=== PATIENT | male | born 1955 | race Caucasian/White ===

== ENCOUNTER → 2018-08-12 | Outpatient (CLI) | payer MEDICARE ==
[2018-08-12 15:13] LABS: Basophils % (A) 0 %; Eosinophils # (A) 0.1 k/uL (0-0.7); Eosinophils % (A) 1 %; HCT 40.9 % (39.0-53.0); HGB 13.4 gm/dL (13.0-17.5); Lymphocytes # (A) 2.1 k/uL (1.0-4.8); Lymphocytes % (A) 28 %; MCH 31.4 pg (25.0-35.0); MCHC 32.9 g/dL (31.0-37.0); MCV 95.5 fL (80.0-100.0); Mean Platelet Volume 6.6; Monocytes # (A) 0.4 k/uL (0-1.0); Monocytes % (A) 5 %; Neutrophils % (A) 64 %; Platelet Count 246 k/uL (150-450); RBC 4.28 m/uL (4.30-5.90); RDW 12.6 % (11.5-15.5); WBC 7.7 k/uL (3.8-10.6)
[2018-08-12 15:31] LABS: Potassium 4.4 mmol/L (3.5-5.1)
== END | disposition home or self-care (01) ==
LOC: LABPAT 14:16
PROVIDERS: ATTEND Surgery
DX: Z01.812 Encounter for preprocedural laboratory examination (principal); I65.21 Occlusion and stenosis of right carotid artery
CPT/HCPCS: 36415; 80051; 82565; 84520; 85025

== ENCOUNTER 2018-09-02 05:39 | Inpatient (IN) | payer MEDICARE ==
[2018-08-25 12:33] VITALS: BMI 24.0
[~2018-09-02 05:39] MED LIST: ceFAZolin IN SWFI 2 GM/20 ML SYRINGE IVP ONE
[2018-09-02] MEDS ORDERED: SCOPOLAMINE 1.5MG/72HR PATCH TRANSDERM ONE (06:01)
[2018-09-02] MEDS ORDERED: ONDANSETRON 4 MG/2 ML VIAL IVP ONE (06:01)
[2018-09-02] MEDS ORDERED: DEXAMETHASONE SOD PHOSPHATE 10 MG/ML 1 ML VIAL IV ONE (06:01)
[2018-09-02] MEDS ORDERED: LIDOCAINE 1% 20 ML VIAL (10MG/ML) FOR IV START INTRADERMA PRN (06:01)
[2018-09-02] MEDS: LACTATED RINGERS 1,000 ML IV SCH ×4 (06:34→22:19)
[2018-09-02] MEDS ORDERED: MIDAZOLAM 2 MG/2 ML VIAL IV ONE (06:50)
[2018-09-02] MEDS ORDERED: NITROGLYCERIN-D5W PMX 50 MG in DEXTROSE/WATER 1 250ML.BAG IV SCH (07:15)
[2018-09-02] MEDS ORDERED: PHENYLEPHRINE 40 MG in SODIUM CHLORIDE 0.9% 250 ML IV SCH (07:15)
[2018-09-02] MEDS ORDERED: GLYCOPYRROLATE 0.2 MG/ML 2 ML VIAL ONE (07:27)
[2018-09-02] MEDS ORDERED: LIDOCAINE 1% INJ 10MG/ML (20 ML MDV) ONE (07:27)
[2018-09-02] MEDS ORDERED: ROCURONIUM BROMIDE 10 MG/ML 10 ML VIAL IV ONE (07:27)
[2018-09-02] MEDS ORDERED: PROTAMINE SULFATE 10 MG/ML 5 ML VIAL IV ONE (07:27)
[2018-09-02] MEDS ORDERED: fentaNYL (PF) 50 MCG/ML 2 ML AMP ONE (07:27)
[2018-09-02] MEDS ORDERED: PROPOFOL 10 MG/ML 20 ML VIAL IV ONE (07:27)
[2018-09-02] MEDS ORDERED: NITROGLYCERIN-D5W PMX 50 MG/250 ML BOTTLE IV ONE (07:27)
[2018-09-02] MEDS ORDERED: NEOSTIGMINE 1 MG/ML 10 ML VIAL ONE (07:27)
[2018-09-02] MEDS ORDERED: HEPARIN SODIUM,PORCINE 10,000 UNIT/ML 1 ML VIAL ONE (07:27)
[2018-09-02] MEDS ORDERED: LIDOCAINE 1% INJ 10MG/ML (20 ML MDV) IV ONE (08:06)
[2018-09-02] MEDS ORDERED: SODIUM CHLORIDE 0.9% 500 ML 500 ML with HEPARIN SODIUM,PORCINE 5,000 UNIT IV ONE ×2 (08:07)
[2018-09-02] MEDS ORDERED: ceFAZolin 1,000 MG in SODIUM CHLORIDE 0.9% 1,000 ML IRRIGATION ONE (08:09)
[2018-09-02] MEDS ORDERED: THROMBIN (BOVINE) 5,000 UNIT VIAL TOPICAL ONE (08:11)
[2018-09-02] MEDS ORDERED: GELATIN SPONGE,ABSORB (LARGE) 1 EACH SPONGE TOPICAL ONE (08:11)
[2018-09-02] MEDS ORDERED: ASPIRIN 325 MG TAB PO SCH (10:30)
[2018-09-02] MEDS ORDERED: HYDROmorphone 1 MG/ML 1 ML SYRINGE IVP ONE (10:33)
[2018-09-02] MEDS ORDERED: MAG HYDROX/AL HYDROX/SIMETH 30 ML CUP PO PRN (10:37)
[2018-09-02] MEDS ORDERED: TRIMETHOBENZAMIDE 100 MG/ML 2 ML VIAL IM PRN (10:37)
[2018-09-02] MEDS ORDERED: ACETAMINOPHEN TAB 325 MG TAB PO PRN (10:37)
[2018-09-02] MEDS: HYDROmorphone 0.5 MG/0.5 ML SYRINGE IVP PRN ×2 (10:47→11:17)
--- NOTE | 2018-09-02 10:51 | P.OP ---
Date of Procedure: 09/02/18 Preoperative Diagnosis: High-grade/hemodynamically severe right internal carotid artery stenosis Postoperative Diagnosis: Same. Procedure(s) Performed: Right carotid endarterectomy with patch angioplasty. Anesthesia: GETA Surgeon: Alfie Salter Estimated Blood Loss (ml): 50 IV fluids (ml): 400 Urine output (ml): 400 Pathology: other (Right carotid plaque) Condition: stable Disposition: PACU Indications for Procedure: Greater than 80% right ICA stenosis Operative Findings: Greater than 80% right ICA stenosis Description of Procedure: Patient is a 63-year-old male who had presented with a previously diagnosed hemodynamically severe right internal carotid artery stenosis, estimated to be greater than 80%. This was initially identified on carotid duplex imaging and c onfirmed with CT angiography. Because of the patient's relatively good health and felt the patient would benefit from a carotid endarterectomy. The procedure, risk and benefits were discussed with the patient. Patient wished to proceed. Patient was brought to the [facility] and placed in the supine position Mr. general endotracheal anesthesia delivered by the department anesthesiology. The patient received 2 g of Ancef intravenously in the perioperative phase for prophylactic antibiotic therapy. The right lateral neck, supraclavicular and anterior chest wall were sterilely prepped and draped in usual manner. Skin incision was made overlying the anterior border sternocleidomastoid muscle and carried down through the subcutaneous tissues and through the platysma. Hemostasis was achieved using electrocautery. The incision was deepened and the facial vein was identified. This was mobilized and doubly ligated with silk suture and divided between the ligatures. Incision was then carried down to the carotid sheath. Proximal portion of the common carotid artery was identified and dissected free of investing tissues and encircled with Vesseloops. The dissection was carried down to the level of bulb. The vagus nerve was identified and left undisturbed. The superior thyroid and external carotid arteries were identified and encircled Vesseloops. The dissection was then carried cephalad along the internal carotid to a point distal to the plaquing. The distal portion of the internal carotid artery was encircled Vesseloops. Hypoglossal nerve was identified and left undisturbed. The patient was systemically heparinized with 6000 units of heparin. ACT was drawn and and anticoagulation was adequate with an ACT of approximately 270. The Vesseloops surrounding the external carotid and superior thyroid artery drawn closed as was the Vesseloops surrounding the internal and finding the common carotid arteries. Incision was then made in the common extensor with Pott Zhang scissors through the level of bulb past the plaquing and into a normal-appearing segment of distal internal carotid artery. Stump pressure was obtained. This was approximate 40 mmHg mean and was felt the patient would benefit by shunting. As such a shunt was placed first in the internal carotid artery and allowed to backbleed and then placed in the common carotid artery, thus restoring flow into the internal system. Endarterectomy was then begun in the internal carotid and extended through the bulb where a retraction endarterectomy was performed on the external system. Dissection was then carried along the internal carotid and the distal portion of the plaque feathered off well. The plaque was sent to the department of pathology. The remaining luminal surface was inspected for any loose or free- floating material and this was removed where identified. The distal plane of the plaque was tacked with 6-0 Prolene suture. Bovine pericardial patch was selected and patch angioplasty closure of the endarterectomy incision was performed with 6-0 Prolene suture placed in running fashion. Just prior to completion of the anastomotic line backbleeding through the internal carotid was allowed to occur as well as through the external and common segments. Once again no thrombus was retrieved. The lumen was flushed with heparinized saline solution and anastomotic line Lausier completed. Backbleeding was allowed to occur through the internal segment. The internal carotid artery was then occluded at its origin. Vessel loops surrounding the superior thyroid, external carotid and finally the common carotid artery were released thus flushing any potential debris into the external system. Flow was then restored into the internal segment. One point of bleeding along the anastomotic line was identified and this was controlled with 6-0 Prolene suture. The wound was irrigated. Topical thrombin and Gelfoam were placed about the anastomotic line to help assure hemostasis. The patient received 25 mg of protamine to reverse the heparin effect. Reinspection of the anastomotic line in the entirety of the wound demonstrated hemostasis to be adequate. With the above findings noted deep tissues were closed with 3-0 Vicryl dermis was closed with 4-0 Monocryl placed in running intradermal fashion. Steri- Strips and appropriate dressings were applied. Patient tolerated the procedure well awoke without apparent neurologic deficit and was transferred to the recovery area in satisfactory and stable condition.
[2018-09-02] MEDS: HYDROcodone/APAP 5-325MG 1 EACH TAB PO PRN (12:34)
[2018-09-02] MEDS: BENZOCAINE/MENTHOL LOZENG 1 EACH LOZENGE MUCOUS MEM PRN ×3 (12:35→23:44)
[2018-09-02] MEDS ORDERED: NALOXONE 0.4 MG/ML 1 ML VIAL IV PRN (12:55)
[2018-09-02 13:06] LABS: Glucose,Whole Blood 121 mg/dL (75-99)
[2018-09-02] MEDS: ASPIRIN 81 MG PO SCH (13:29)
--- NOTE | 2018-09-02 15:23 | P.CNPUL ---
History of Present Illness Consult date: 09/02/18 Reason for consult: other (postoperative ICU management) Chief complaint: status post carotid endarterectomy History of present illness: this is a 63-year-old white male with no significant past medical history. Patient was recently evaluated by his primary care physician Dr. De León,, and he was found to have right carotid bruit. This was found on a routine physical examination. Patient had no symptoms. Further workup revealed over 80% stenosis of the right carotid artery. Patient was referred to Dr. Baxter, and he underwent today elective right carotid endarterectomy. Postoperatively, patient was transferred to the intensive care unit, and I was asked to see him on consultation. Patient has been at least a [id number] smoker, he smoked until a few weeks ago. No documented history of COPD or COPD symptoms. No documented history of coronary artery disease or symptoms of angina. Patient is normally on aspirin and Flomax, he is also on vitamin D. He had minor surgeries including neuroma surgery on the left foot, left shoulder surgery, and right facial basal cell carcinoma which was removed. Otherwise the patient has no significant past medical history whatsoever. He is also known to have history of benign prostatic hypertrophy. Review of Systems constitutional: No fever no chills no weight loss no aches and pains. HEENT: Denies any earache, denies any headache, no blurred vision, no dizziness. Denies any sore throat. Pulmonary: Denies any cough wheezing or shortness of breath denies any chest pain. Cardiac: Denies any chest pain, no palpitations, no diaphoresis no dyspnea on exertion. GI: Denies any nausea vomiting abdominal pain melena or hematemesis. Genitourinary: Has history of enlarged prostate, and symptoms of prostatism, improved with Flomax. Hematologic: No clotting bleeding or bruising Psychiatric: No symptoms of active depression Neurologic: No symptoms of headache blurred vision or dizziness. Denies any previous history of TIA. Skin: History of neuroma left foot, and history of basal cell carcinoma right cheek. Musculoskeletal: No symptoms of limitation in range of motion, had previous history of bone spur on left shoulder, surgery was performed. Past Medical History Past Medical History: Cancer, Prostate Disorder Additional Past Medical History / Comment(s): HX SKIN CANCER, BPH. History of Any Multi-Drug Resistant Organisms: None Reported Past Surgical History: Orthopedic Surgery Additional Past Surgical History / Comment(s): NEUROMA LEFT FOOT, BONE SPURS SHOULDER Past Anesthesia/Blood Transfusion Reactions: No Reported Reaction Additional Past Anesthesia/Blood Transfusion Reaction / Comment(s): MOTHER=PONV Past Psychological History: No Psychological Hx Reported Smoking Status: Former smoker Past Alcohol Use History: Daily Additional Past Alcohol Use History / Comment(s): QUIT SMOKING 7 WEEKS AGO., SMOKED 1 1/2 PPD., SMOKED 40 YEARS. STATES USUALLY 1 DRINK DAILY. Past Drug Use History: None Reported - Past Family History Mother Family Medical History: No Reported History Medications and Allergies Home Medications Medication Instructions Recorded Confirmed Type Aspirin 325 mg PO DAILY 08/25/18 09/02/18 History Cholecalciferol (Vitamin D3) 2,000 unit PO DAILY 08/25/18 09/02/18 History [Vitamin D3] Tamsulosin HCl [Flomax] 0.4 mg PO DAILY 08/25/18 09/02/18 History Allergies Allergy/AdvReac Type Severity Reaction Status Date / Time simvastatin [From Zocor] AdvReac Unknown red rosas Verified 09/02/18 12:14 on face, dry skin Physical Exam Vitals: Vital Signs Temp Pulse Pulse Pulse Resp BP BP 09/02/18 15:10 60 0 L 123/73 09/02/18 15:00 64 11 L 100/68 09/02/18 14:50 62 0 L 100/68 09/02/18 14:40 63 0 L 99/63 09/02/18 14:30 61 9 L 103/54 09/02/18 14:20 60 8 L 103/54 09/02/18 14:10 67 6 L 116/54 09/02/18 14:00 69 6 L 116/96 09/02/18 13:50 64 4 L 116/96 09/02/18 13:40 60 5 L 104/52 09/02/18 13:30 58 L 5 L 113/60 09/02/18 13:20 64 10 L 113/60 09/02/18 13:10 60 4 L 108/53 09/02/18 13:00 60 10 L 105/51 09/02/18 12:50 58 L 5 L 105/51 09/02/18 12:40 56 L 0 L 105/55 09/02/18 12:30 56 L 3 L 101/52 03/27/19 12:20 56 L 3 L 102/53 09/02/18 12:10 61 0 L 102/53 09/02/18 12:00 97.8 F 56 L 8 L 09/02/18 11:30 63 18 144/40 09/02/18 11:15 57 L 18 143/41 09/02/18 11:00 56 L 18 142/40 09/02/18 10:45 58 L 18 138/41 09/02/18 10:30 57 L 18 140/40 09/02/18 10:15 58 L 18 150/42 09/02/18 10:05 97.0 F L 65 18 153/40 09/02/18 06:29 97.1 F L 84 16 135/69 BP Pulse Ox 09/02/18 15:10 95 09/02/18 15:00 96 09/02/18 14:50 95 09/02/18 14:40 97 09/02/18 14:30 97 09/02/18 14:20 97 09/02/18 14:10 97 09/02/18 14:00 98 09/02/18 13:50 97 09/02/18 13:40 98 09/02/18 13:30 97 09/02/18 13:20 97 09/02/18 13:10 93 L 09/02/18 13:00 97 09/02/18 12:50 98 09/02/18 12:40 98 09/02/18 12:30 97 09/02/18 12:20 97 09/02/18 12:10 98 09/02/18 12:00 97 09/02/18 11:30 110/52 97 09/02/18 11:15 106/56 99 09/02/18 11:00 103/54 98 09/02/18 10:45 106/56 98 09/02/18 10:30 109/57 95 09/02/18 10:15 116/28 98 09/02/18 10:05 121/58 98 09/02/18 06:29 138/57 99 Intake and Output 09/02/18 09/02/18 09/02/18 06:59 14:59 22:59 Intake Total 500 677 100 Output Total 450 0 Balance 500 227 100 Intake: IV 500 477 Intake, IV Titration 200 100 Amount Lactated Ringers 1,000 ml 200 100 @ 100 mls/hr IV .Q10H [facility] Rx#:[id number] Output: Urine 400 0 Estimated Blood Loss 50 ABP, PAP, CO, CI - Last 8 Hours Arterial Blood Pressure 135/49 Arterial Blood Pressure 144/55 Arterial Blood Pressure 162/60 Arterial Blood Pressure 153/54 Arterial Blood Pressure 149/51 Arterial Blood Pressure 137/48 Arterial Blood Pressure 138/44 Arterial Blood Pressure 141/45 Arterial Blood Pressure 117/49 Arterial Blood Pressure 153/47 Arterial Blood Pressure 90/37 Physical Exam: Revealed a 63-year-old white male, pleasant, in no distress. Head: Atraumatic, normocephalic. HEENT:[Neck is supple.] [No neck masses.] [No thyromegaly.] [No JVD.]. Surgical dressing noted on the right carotid region, clean, dry, Chest: [Clear throughout, no crackles, no rhonchi, no wheezes.]symmetrical chest expansion, no chest wall tenderness. Cardiac Exam: [Normal S1 and S2, no S3 gallop, no murmur.] Abdomen: [Soft, nontender, no megaly, no rebound, no guarding, normal bowel sounds.] Extremities: [No clubbing, no edema, no cyanosis.] Neurological Exam: [No focal neurologic deficit.]alert oriented 3. Psychiatric: Normal mood affect and mental status examination. Skin: No rashes, no areas of erythema, surgical site is clean and dry. Lymphatics: No lymphadenopathy. Results - Laboratory Findings Abnormal lab findings: Abnormal Labs 09/02/18 13:02 POC Glucose (mg/dL) 121 H Assessment and Plan Assessment: impression: 1 status post right carotid endarterectomy, postoperative day #0. 2 history of smoking, but no documented history of COPD or COPD symptoms. 3 history of benign prostatic hypertrophy and symptoms of prostatism controlled with Flomax. 4 history of skin cancer. 5 history of vitamin D deficiency. Recommendation: Continue present meds, continue incentive spirometry, no need for any bronchodilators at this point, resume home meds, consider discharge planning in the next 24 hours. We'll continue to follow. Time with Patient: Greater than 30
[2018-09-02] MEDS: ceFAZolin IN SWFI 2 GM/20 ML SYRINGE IVP SCH ×2 (16:57→23:44)
[2018-09-03 04:01] LABS: Basophils % (A) 0 %; Eosinophils # (A) 0.1 k/uL (0-0.7); Eosinophils % (A) 1 %; HCT 33.8 % (39.0-53.0); HGB 11.5 gm/dL (13.0-17.5); Lymphocytes # (A) 1.9 k/uL (1.0-4.8); Lymphocytes % (A) 17 %; MCH 32.2 pg (25.0-35.0); MCV 94.7 fL (80.0-100.0); Mean Platelet Volume 7.7; Monocytes # (A) 0.7 k/uL (0-1.0); Monocytes % (A) 6 %; Neutrophils # (A) 8.4 k/uL (1.3-7.7); Neutrophils % (A) 75 %; Platelet Count 208 k/uL (150-450); RBC 3.57 m/uL (4.30-5.90); RDW 12.8 % (11.5-15.5); WBC 11.2 k/uL (3.8-10.6)
[2018-09-03 04:10] LABS: Anion Gap 5 mmol/L; Blood Urea Nitrogen 11 mg/dL (9-20); Carbon Dioxide 25 mmol/L (22-30); Chloride 107 mmol/L (98-107); Glucose 106 mg/dL (74-99); Magnesium 1.8 mg/dL (1.6-2.3); Phosphorus 3.3 mg/dL (2.5-4.5); Potassium 4.1 mmol/L (3.5-5.1); Sodium 137 mmol/L (137-145)
[2018-09-03] MEDS ORDERED: Magnesium Replacement Protocol 1 EACH MISC MISCELLANE PRN (06:15)
[2018-09-03] MEDS: LACTATED RINGERS 1,000 ML IV SCH (07:06)
[2018-09-03] MEDS: MAGNESIUM SULFATE-D5W PMX 1 GM in DEXTROSE/WATER 1 100ML.BAG IVPB SCH ×2 (07:06→08:37)
[2018-09-03 08:36] VITALS: TEMP 98.5
[2018-09-03] MEDS: ASPIRIN 81 MG PO SCH (08:37)
[2018-09-03] MEDS: HYDROcodone/APAP 5-325MG 1 EACH TAB PO PRN (08:45)
[2018-09-03] MEDS ORDERED: ENOXAPARIN 40 MG/0.4 ML SYRINGE SQ SCH (09:00)
[2018-09-03] MEDS ORDERED: CHOLECALCIFEROL 1,000 UNIT TAB PO SCH (09:00)
[2018-09-03] MEDS ORDERED: TAMSULOSIN 0.4 MG CAP.ER.24H PO SCH (09:00)
[2018-09-03 09:10] VITALS: BP 112/61
--- NOTE | 2018-09-03 09:29 | P.WNDSOAP ---
Subjective Progress Note Date: 09/03/18 Principal diagnosis: High-grade right carotid stenosis Patient has fairly mild neck discomfort. No neurologic symptoms. Objective - Vital Signs Vital signs: Vital Signs Temp 98.5 F 09/03/18 08:00 Pulse 68 09/03/18 09:00 Resp 22 09/03/18 09:00 BP 112/61 09/03/18 09:00 Pulse Ox 96 09/03/18 09:00 Intake & Output 09/02/18 09/03/18 09/03/18 18:59 06:59 18:59 Intake Total 1077 1400 420 Output Total 450 1000 375 Balance 627 400 45 Weight 68.8 kg Intake: IV 477 1100 300 Lactated Ringers 1,000 ml 1100 300 @ 100 mls/hr IV .Q10H [facility] Rx#:[id number] Intake, IV Titration 600 100 Amount Lactated Ringers 1,000 ml 600 100 @ 100 mls/hr IV .Q10H [facility] Rx#:[id number] Oral 100 120 Blood Product 100 Output: Urine 400 1000 375 Estimated Blood Loss 50 Other: Voiding Method Urinal Urinal ABP, PAP, CO, CI - Last Documented Arterial Blood Pressure 115/39 - Exam Vital signs stable. On no IV medication. Neck shows minimal swelling and incision well approximated. Neurologically intact. - Labs CBC & Chem 7: 09/03/18 03:50 09/03/18 03:50 Labs: Abnormal Lab Results - Last 24 Hours (Table) 09/02/18 09/03/18 09/03/18 Range/Units 13:02 03:50 03:50 WBC 11.2 H (3.8-10.6) k/uL RBC 3.57 L (4.30-5.90) m/uL Hgb 11.5 L (13.0-17.5) gm/dL Hct 33.8 L (39.0-53.0) % Neutrophils # 8.4 H (1.3-7.7) k/uL Glucose 106 H (74-99) mg/dL POC Glucose (mg/dL) 121 H (75-99) mg/dL Assessment and Plan (1) Carotid stenosis, right Current Visit: Yes Status: Acute Code(s): I65.21 - OCCLUSION AND STENOSIS OF RIGHT CAROTID ARTERY SNOMED Code(s): 634299003345568 Plan: This patient is recovered nicely from his right carotid endarterectomy. We gave him wound care instructions. He will go back to his standard medications. He will follow-up with primary care and Dr. Salter in the next week.
[2018-09-03 09:59] VITALS: PULSE 87; RESP 25
--- NOTE | 2018-09-03 10:43 | P.CONS ---
History of Present Illness - Reason for Consult Consult date: 09/03/18 Medical management - Chief Complaint Carotid stenosis - History of Present Illness This is a 63-year-old male patient of Dr. De León. Patient presented to the hospital for an elective right carotid endarterectomy with patch angioplasty with Dr. Baxter. Patient was previously diagnosed by PCP with severe right internal carotid artery stenosis estimated greater than 80%. Additional medical history includes skin cancer, prostate disorder and ex-smoker. Patient was evaluated by Dr. Kaia santos for Dr. Baxter planning on being discharged today. Patient was also seen by Dr. Neha santos for critical care. At this time patient is resting comfortably in bed with no complaints. Patient has been up ambulating. Patient denies chest pain or shortness breath. Denies nausea vomiting or diarrhea. Denies any urinary burning or frequency Review of Systems please refer to HPI otherwise unremarkable Past Medical History Past Medical History: Cancer, Prostate Disorder Additional Past Medical History / Comment(s): HX SKIN CANCER, BPH. History of Any Multi-Drug Resistant Organisms: None Reported Past Surgical History: Orthopedic Surgery Additional Past Surgical History / Comment(s): NEUROMA LEFT FOOT, BONE SPURS SHOULDER Past Anesthesia/Blood Transfusion Reactions: No Reported Reaction Additional Past Anesthesia/Blood Transfusion Reaction / Comm: MOTHER=PONV Past Psychological History: No Psychological Hx Reported Smoking Status: Former smoker Past Alcohol Use History: Daily Additional Past Alcohol Use History / Comment(s): QUIT SMOKING 7 WEEKS AGO., SM OKED 1 1/2 PPD., SMOKED 40 YEARS. STATES USUALLY 1 DRINK DAILY. Past Drug Use History: None Reported - Past Family History Mother Family Medical History: No Reported History Medications and Allergies Home Medications Medication Instructions Recorded Confirmed Type Aspirin 325 mg PO DAILY 08/25/18 09/02/18 History Cholecalciferol (Vitamin D3) 2,000 unit PO DAILY 08/25/18 09/02/18 History [Vitamin D3] Tamsulosin HCl [Flomax] 0.4 mg PO DAILY 08/25/18 09/02/18 History Allergies Allergy/AdvReac Type Severity Reaction Status Date / Time simvastatin [From Zocor] AdvReac Unknown red rosas Verified 09/02/18 12:14 on face, dry skin Physical Exam Vitals: Vital Signs Temp Pulse Pulse Resp BP BP BP 09/03/18 09:30 87 25 H 112/61 09/03/18 09:00 68 22 112/61 09/03/18 08:30 71 13 09/03/18 08:15 22 09/03/18 08:00 98.5 F 64 16 114/53 09/03/18 07:30 82 22 114/59 09/03/18 07:00 60 13 110/58 09/03/18 06:30 58 L 11 L 110/58 09/03/18 06:00 66 16 111/65 09/03/18 05:30 60 17 111/65 09/03/18 05:00 56 L 12 106/51 09/03/18 04:30 55 L 16 106/51 09/03/18 04:00 98.0 F 16 106/51 09/03/18 03:30 55 L 7 L 106/51 09/03/18 03:00 56 L 10 L 106/51 09/03/18 02:30 60 6 L 106/51 09/03/18 02:00 59 L 6 L 132/55 09/03/18 01:30 61 9 L 132/55 09/03/18 01:00 60 9 L 132/55 09/03/18 00:32 60 12 132/55 09/03/18 00:30 59 L 15 132/55 09/03/18 00:00 98.2 F 58 L 11 L 94/72 09/02/18 23:30 63 5 L 94/72 09/02/18 23:19 61 0 L 94/72 09/02/18 22:00 91 26 H 09/02/18 21:30 100 59 H 09/02/18 21:00 98 21 105/45 09/02/18 20:30 60 8 L 113/55 09/02/18 20:00 98.1 F 60 13 105/47 09/02/18 19:30 64 15 109/56 09/02/18 19:10 68 15 108/58 09/02/18 19:00 63 14 104/54 09/02/18 18:50 65 2 L 104/54 09/02/18 18:40 65 5 L 105/58 09/02/18 18:30 67 5 L 99/48 09/02/18 18:20 65 30 H 99/48 09/02/18 18:10 74 14 93/53 09/02/18 18:00 62 4 L 101/48 09/02/18 17:50 71 7 L 101/48 09/02/18 17:40 72 8 L 103/70 09/02/18 17:30 100 5 L 118/65 09/02/18 17:20 74 0 L 118/65 09/02/18 17:10 84 11 L 110/58 09/02/18 17:00 66 15 105/54 09/02/18 16:50 66 8 L 105/54 09/02/18 16:40 61 11 L 111/57 09/02/18 16:30 62 13 105/54 09/02/18 16:20 61 10 L 105/54 09/02/18 16:10 63 10 L 104/52 09/02/18 16:00 98.2 F 60 9 L 102/52 09/02/18 15:50 65 6 L 102/52 09/02/18 15:40 60 0 L 113/55 09/02/18 15:30 63 4 L 88/60 09/02/18 15:20 63 9 L 88/60 09/02/18 15:10 60 0 L 123/73 09/02/18 15:00 64 11 L 100/68 09/02/18 14:50 62 0 L 100/68 09/02/18 14:40 63 0 L 99/63 09/02/18 14:30 61 9 L 103/54 09/02/18 14:20 60 8 L 103/54 09/02/18 14:10 67 6 L 116/54 09/02/18 14:00 69 6 L 116/96 09/02/18 13:50 64 4 L 116/96 09/02/18 13:40 60 5 L 104/52 09/02/18 13:30 58 L 5 L 113/60 09/02/18 13:20 64 10 L 113/60 09/02/18 13:10 60 4 L 108/53 09/02/18 13:00 60 10 L 105/51 09/02/18 12:50 58 L 5 L 105/51 09/02/18 12:40 56 L 0 L 105/55 09/02/18 12:30 56 L 3 L 101/52 09/02/18 12:20 56 L 3 L 102/53 09/02/18 12:10 61 0 L 102/53 09/02/18 12:00 97.8 F 56 L 8 L 09/02/18 11:30 63 18 144/40 110/52 09/02/18 11:15 57 L 18 143/41 106/56 09/02/18 11:00 56 L 18 142/40 103/54 09/02/18 10:45 58 L 18 138/41 106/56 Pulse Ox 09/03/18 09:30 96 09/03/18 09:00 96 09/03/18 08:30 96 09/03/18 08:15 09/03/18 08:00 96 09/03/18 07:30 96 09/03/18 07:00 92 L 09/03/18 06:30 97 09/03/18 06:00 93 L 09/03/18 05:30 96 09/03/18 05:00 98 09/03/18 04:30 97 09/03/18 04:00 98 09/03/18 03:30 96 09/03/18 03:00 95 09/03/18 02:30 94 L 09/03/18 02:00 97 09/03/18 01:30 95 09/03/18 01:00 96 09/03/18 00:32 95 09/03/18 00:30 95 09/03/18 00:00 96 09/02/18 23:30 95 09/02/18 23:19 96 09/02/18 22:00 09/02/18 21:30 09/02/18 21:00 09/02/18 20:30 96 09/02/18 20:00 96 09/02/18 19:30 96 09/02/18 19:10 97 09/02/18 19:00 96 09/02/18 18:50 96 09/02/18 18:40 97 09/02/18 18:30 96 09/02/18 18:20 96 09/02/18 18:10 97 09/02/18 18:00 96 09/02/18 17:50 96 09/02/18 17:40 95 09/02/18 17:30 95 09/02/18 17:20 96 09/02/18 17:10 97 09/02/18 17:00 97 09/02/18 16:50 93 L 09/02/18 16:40 96 09/02/18 16:30 95 09/02/18 16:20 96 09/02/18 16:10 97 09/02/18 16:00 97 09/02/18 15:50 96 09/02/18 15:40 94 L 09/02/18 15:30 95 09/02/18 15:20 97 09/02/18 15:10 95 09/02/18 15:00 96 09/02/18 14:50 95 09/02/18 14:40 97 09/02/18 14:30 97 09/02/18 14:20 97 09/02/18 14:10 97 09/02/18 14:00 98 09/02/18 13:50 97 09/02/18 13:40 98 09/02/18 13:30 97 09/02/18 13:20 97 09/02/18 13:10 93 L 09/02/18 13:00 97 09/02/18 12:50 98 09/02/18 12:40 98 09/02/18 12:30 97 09/02/18 12:20 97 09/02/18 12:10 98 09/02/18 12:00 97 09/02/18 11:30 97 09/02/18 11:15 99 09/02/18 11:00 98 09/02/18 10:45 98 Intake and Output 09/02/18 09/03/18 09/03/18 22:59 06:59 14:59 Intake Total 900 900 720 Output Total 400 600 375 Balance 500 300 345 Intake: IV 300 800 600 Lactated Ringers 1,000 ml 300 800 400 @ 100 mls/hr IV .Q10H [facility] Rx#:[id number] Magnesium Sulfate-D5w Pmx 200 1 gm In Dextrose/Water 1 100ml.bag @ 100 mls/hr IVPB Q1H [facility] Rx#: [id number] Intake, IV Titration 500 Amount Lactated Ringers 1,000 ml 500 @ 100 mls/hr IV .Q10H [facility] Rx#:[id number] Oral 100 120 Blood Product 100 Output: Urine 400 600 375 Other: Voiding Method Urinal Urinal Urinal Weight 68.8 kg ABP, PAP, CO, CI - Last 8 Hours Arterial Blood Pressure 115/39 Arterial Blood Pressure 117/43 Head normocephalic Neck supple. Right carotid dressing clean, dry and intact Lungs clear to auscultation bilaterally no wheezing or crackles Heart regular rate and rhythm S1-S2, no rub or gallop Abdomen is soft nontender nondistended positive bowel sounds no hepatosplenomegaly Extremities no edema Neuro alert and orientated to 3 Results CBC & Chem 7: 09/03/18 03:50 09/03/18 03:50 Labs: Abnormal Lab Results - Last 24 Hours (Table) 09/02/18 09/03/18 09/03/18 Range/Units 13:02 03:50 03:50 WBC 11.2 H (3.8-10.6) k/uL RBC 3.57 L (4.30-5.90) m/uL Hgb 11.5 L (13.0-17.5) gm/dL Hct 33.8 L (39.0-53.0) % Neutrophils # 8.4 H (1.3-7.7) k/uL Glucose 106 H (74-99) mg/dL POC Glucose (mg/dL) 121 H (75-99) mg/dL Assessment and Plan Assessment: 1. Carotid stenosis status post right carotid endarterectomy. Patient is cu rrently postop day 1. Patient will be discharged per surgical services 2. History of skin cancer 3. History of prostate disorder 4. Ex-smoker. Patient reports he quit 2 months ago. Declines nicotine patch at this time Thank you for this consultation we will continue to follow patient closely throughout stay Time with Patient: Greater than 30 (Greater than 60% of the total time spent in counseling and coordination of care. I performed an examination of the patient and discussed their management with the Nurse Practitioner. I have reviewed the Nurse Practitioner's notes and agree with the documented findings and plan of care)
== END 2018-09-03 10:27 | disposition home or self-care (01) | DRG 39 ==
LOC: 2ORMAIN 05:39 → 2SICU 11:11
PROVIDERS: ADMIT Surgery; ATTEND Surgery
PROC: 03CM0ZZ Extirpation of Matter from Right External Carotid Artery, Open Approach (ICD-10-PCS; 2018-09-02)
PROC: 03UK0JZ Supplement Right Internal Carotid Artery with Synthetic Substitute, Open Approach (ICD-10-PCS; 2018-09-02)
PROC: 03CK0ZZ Extirpation of Matter from Right Internal Carotid Artery, Open Approach (ICD-10-PCS; principal; 2018-09-02 07:30)
DX: I65.21 Occlusion and stenosis of right carotid artery (principal); J44.9 Chronic obstructive pulmonary disease, unspecified; N40.0 Benign prostatic hyperplasia without lower urinary tract symptoms; E55.9 Vitamin D deficiency, unspecified; E78.5 Hyperlipidemia, unspecified; I10 Essential (primary) hypertension; Z79.82 Long term (current) use of aspirin; Z79.899 Other long term (current) drug therapy; Z85.828 Personal history of other malignant neoplasm of skin; Z87.891 Personal history of nicotine dependence; Z88.8 Allergy status to other drugs, medicaments and biological substances
CPT/HCPCS: 80048; 83735; 84100; 85025; 86850; 86900; 86901; 88304; 88311

== ENCOUNTER → 2024-03-31 | Outpatient (CLI) | payer MEDICARE ==
--- NOTE | 2024-03-31 13:48 | MR ---
EXAMINATION TYPE: MR lumbar spine wo con DATE OF EXAM: 03/31/2024 12:03 PM COMPARISON: NONE HISTORY: Low Back pain into Buttocks Multiplanar, MultiSpin echo imaging of the lumbar spine was performed. L1-L2: Normal disc appearance without desiccation. No herniation, protrusion or disc bulging. No ca nal stenosis is present. Foramina are patent bilaterally. L2-L3: There is mild disc desiccation posterior disc bulge. There may be intermittent bilateral later al recess stenosis. Mild bilateral foraminal encroachment. L3-L4: Mild disc desiccation with minimal posterior disc bulge. No herniation or central stenosis. No lateral recess stenosis or foraminal encroachment. L4-L5: Moderate disc desiccation. 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 There is mass effect upon the t hecal sac resulting in moderate central stenosis. Mild right foraminal encroachment. L5-S1: Normal disc appearance without desiccation. No herniation, protrusion or disc bulging. No ca nal stenosis is present. Foramina are patent bilaterally. Lumbar segments are intact. No paraspinal masses are identified. Conus medullaris has a normal appe arance. IMPRESSION: 1. Multilevel degenerative disc disease. 2. Extruded disc herniation at L4-5 with disc material noted extending cranially and residing posteri or to the L4 segment with suspected sequestered component. [facility], , 03/31/2024 1:46 PM
== END | disposition home or self-care (01) ==
LOC: RADMRIMAIN 11:08
PROVIDERS: ATTEND Family Medicine
CPT/HCPCS: 72148